=== PATIENT | female | born 1990 | race Caucasian/White ===

== ENCOUNTER 2017-08-12 21:51 | Emergency (ER) | payer OTHER, BC ==
[2017-08-12 22:03] VITALS: BP 109/77; PULSE 107; TEMP 98; BMI 27.4
--- NOTE | 2017-08-12 22:36 | PDOC ---
History of Present Illness - General Chief Complaint: Pain Stated Complaint: L ANKLE PAIN Time Seen by Provider: 08/12/17 21:54 - History of Present Illness Initial Comments: This otherwise healthy 27-year-old woman presents with an injury to her left ankle. Earlier today, as patient was running, she apparently rolled her left ankle. She states that she had minor pain to begin with but was able to weight- bear. Over the subsequent few hours, she had increasing pain and swelling in the ankle, pain worsened with weightbearing. Patient did not fall and had no other injury sustained. No previous injury of ankle sprain or fracture. Patient has no other significant injuries. She has no past medical history and is on no medications. Past History - Past Medical History Allergies/Adverse Reactions: Allergies Allergy/AdvReac Type Severity Reaction Status Date / Time amoxicillin [Amoxicillin] Allergy Intermediate Hives Verified 07/11/13 10:11 Penicillins Allergy Intermediate Hives Verified 07/11/13 10:11 Home Medications: Ambulatory Orders Diclofenac Sodium [Voltaren -] 75 mg PO BID PRN #14 tablet. 08/13/17 Anemia: No Asthma: No Cancer: No Cardiac Disorders: No CVA: No COPD: No CHF: No Dementia: No Diabetes: No GI Disorders: Yes (HAD GALLSTONES DX 11/28 ON SONO,HAD ERCP 07/06/13) Disorders: Yes (CURRENT UTI,ON ANTIBIOTICS SINCE 07/03/13 FOR GALLBLADDER) HTN: No Hypercholesterolemia: No Liver Disease: Yes (ELEVATED LIVER ENZYMES DX 11/28) Seizures: No Thyroid Disease: No - Immunization History Immunization Up to Date: Yes - Suicide/Smoking/Psychosocial Hx Smoking History: Unknown if ever smoked Have you smoked in the past 12 months: No Number of Cigarettes Smoked Daily: 0 Information on smoking cessation initiated: No Hx Alcohol Use: No Drug/Substance Use Hx: No Substance Use Type: None Review of Systems - Review of Systems Able to Perform ROS?: Yes Comments:: 12 point review of systems is negative except for what is noted in the history of present illness *Physical Exam - Vital Signs Last Vital Signs Temp Pulse Resp BP Pulse Ox 98 F 107 H 14 109/77 100 08/12/17 21:59 08/12/17 21:59 08/12/17 21:59 08/12/17 21:59 08/12/17 21:59 - Physical Exam Comments: GENERAL: adult female, alert and oriented 3, in no acute distress HEAD: Normal with no signs of trauma. EYES: PERRLA, EOMI, sclera anicteric, conjunctiva clear. ENT: Ears normal, nares patent, oropharynx clear without exudates. Dry mucous membranes. NECK: Normal range of motion, supple without lymphadenopathy, JVD, or masses. LUNGS: Breath sounds equal, clear to auscultation bilaterally. No wheezes, and no crackles. HEART:Regular rate and rhythm, normal S1 and S2 without murmur, rub or gallop. ABDOMEN:.normal bowel sounds No guarding,tenderness or rebound.No masses No distention. EXTREMITIES: Left lower extremitymoderate edema/mild tenderness lateral malleolus of the ankle; no ligamentous instability No ecchymosis/deformity seen; no foot edema or tenderness present Foot is warm and dry with excellent capillary refill Remainder of the extremity exam is normal NEUROLOGICAL: Cranial nerves II through XII grossly intact. Normal speech. No focal neurological deficits. MUSCULOSKELETAL: Back non-tender to palpation, no CVA tenderness SKIN: Warm, Dry, normal turgor, no rashes or lesions noted. Progress Note - Progress Note Progress Note: Left ankle x-ray performed and interpreted by me. There is no evidence of fracture or dislocation seen. Juanjo wrap and ankle stirrup splint applied. Distal neurovascular functioning intact after placement of the splint. Crutches fitted and crutch walking instruction given. 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 Diclofenac 75 mg twice a day as needed should be used for pain. Crutches should be used as needed for ambulation for the next 2-3 days If she has persistent pain/swelling, she should follow-up with orthopedist. Patient has no previous orthopedic care and was given referral information for the [facility] . *DC/Admit/Observation/Transfer Diagnosis at time of Disposition: Left ankle sprain Qualifiers: Encounter type: initial encounter Involved ligament of ankle: tibiofibular ligament Qualified Code(s): S93.432A - Sprain of tibiofibular ligament of left ankle, initial encounter - Discharge Dispostion Disposition: HOME Condition at time of disposition: Stable - Prescriptions Prescriptions: Diclofenac Sodium [Voltaren -] 75 mg PO BID PRN #14 tablet.dr LOPEZ Reason: Pain - Referrals Referrals: Yunier Acosta MD [Staff Physician] - 1 week - Patient Instructions Printed Discharge Instructions: Ankle Sprain Additional Instructions: Ice/elevate ankle as much as possible over the next 2 days Juanjo wrap/splint during the day for the next 2 days Splint alone during the day for the following 5 days Crutches for ambulation for the next 2-3 days Diclofenac 75 mg twice a day as needed for pain Follow-up with orthopedist([facility]) if pain/swelling persists - Post Discharge Activity Forms/Work/School Notes: Back to Work
== END 2017-08-13 00:17 | disposition home or self-care (01) ==
LOC: FER 21:51
PROC: 2W3RX1Z Immobilization of Left Lower Leg using Splint (ICD-10-PCS; principal; 2017-08-12)
DX: S93.432A Sprain of tibiofibular ligament of left ankle, initial encounter (principal); X58.XXXA Exposure to other specified factors, initial encounter; Y93.89 Activity, other specified; Y92.9 Unspecified place or not applicable
CPT/HCPCS: 73610-TC-LT; 84703; 99282-25